=== PATIENT | male | born 1965 | race Two or more races ===

== ENCOUNTER 2023-06-27 08:55 | Emergency (ER) | payer OTHER ==
[~2023-06-27] VITALS: Ht 170.2 cm; Wt 75.3 kg
[2023-06-27] MEDS ORDERED: ONDANSETRON HCL/PF 4 MG/2 ML VIAL ONE (09:28)
[2023-06-27] MEDS ORDERED: HYDROMORPHONE 1 MG/1 ML DISP.SYRIN ONE (09:28)
[2023-06-27 09:33] LABS: BASOPHILS % (AUTO) 0.3 % (0.0-2.0); EOSINOPHILS # (AUTO) 0.1 K/uL (0.0-0.7); EOSINOPHILS % (AUTO) 0.8 % (0.0-6.0); HEMATOCRIT 39 % (39-51); LYMPHOCYTES % (AUTO) 12.4 % (20.0-44.0); MEAN CORPUSCULAR HEMOGLOBIN 29 PG (26.0-33.0); MEAN CORPUSCULAR HGB CONC 34 g/dl (31.0-36.0); MEAN CORPUSCULAR VOLUME 85 fL (80-96); MONOCYTES # (AUTO) 0.7 K/uL (0.1-1.30); MONOCYTES % (AUTO) 8.2 % (2.0-12.0); NEUTROPHILS # (AUTO) 6.5 K/uL (1.8-8.9); NEUTROPHILS % (AUTO) 78.3 % (43.0-81.0); PLATELET COUNT (AUTO) 400 K/uL (150-450); RED BLOOD CELL COUNT(AUTO) 4.55 MIL/uL (4.5-6.0); RED CELL DISTRIBUTION WIDTH 16.5 % (11.5-15.0); WHITE BLOOD COUNT (AUTO) 8.4 K/uL (4.3-11.0)
[2023-06-27] MEDS: HYDROMORPHONE INJ 2 MG/ML DISP.SYRIN IV ONE (09:35)
[2023-06-27] MEDS: ONDANSETRON HCL/PF 4 MG/2 ML VIAL IVP ONE (09:36)
[2023-06-27 09:56] LABS: ALANINE AMINOTRANSFERASE 24 U/L (12-78); ALBUMIN 3.2 g/dL (3.4-5.0); ALCOHOL, BLOOD < 3 mg/dL (0-10); ALKALINE PHOSPHATASE 97 U/L (46-116); ASPARTATE AMINOTRANSFERASE 19 U/L (15-37); BILIRUBIN,DIRECT 0.1 mg/dL (0.0-0.2); BILIRUBIN,TOTAL 0.4 mg/dL (0.2-1.0); CALCIUM, SERUM 8.9 mg/dL (8.5-10.1); CARBON DIOXIDE 25 mmol/L (21-32); CHLORIDE 99 mmol/L (98-107); CREATININE 0.7 mg/dL (0.6-1.3); GLUCOSE 114 mg/dL (74-106); SODIUM SERUM 132 mmol/L (136-145); TOTAL PROTEIN, SERUM 8.3 g/dL (6.4-8.2); UREA NITROGEN, BLOOD 12 mg/dL (7-18)
[2023-06-27 10:33] LABS: BARBITURATE, URINE NEGATIVE (NEGATIVE); BENZODIAZEPINE, URINE NEGATIVE (NEGATIVE); COCCAINE, URINE NEGATIVE (NEGATIVE); OPIATE, URINE NEGATIVE (NEGATIVE); PHENCYCLIDINE SCREEN,URINE NEGATIVE (NEGATIVE)
[2023-06-27 10:40] LABS: AMPHETAMINE, URINE POSITIVE (NEGATIVE); CANNABINOID, URINE POSITIVE (NEGATIVE)
[2023-06-27] MEDS ORDERED: TRAM50TA2 PO (11:39)
[2023-06-27 12:23] VITALS: BP 130/72; TEMP 98.2; O2SAT 99
== END 2023-06-27 12:25 | disposition home or self-care (01) ==
LOC: ER 09:00
DX: G89.29 Other chronic pain (principal); M25.562 Pain in left knee; M17.12 Unilateral primary osteoarthritis, left knee; L97.129 Non-pressure chronic ulcer of left thigh with unspecified severity; Z59.00 Homelessness unspecified
CPT/HCPCS: 99284; 96374; 96375; 73564; 73590; 85025; 80048; 80076; 36415; 80320; 80307; J2405; J1170; G0480

== ENCOUNTER 2023-07-01 22:02 | Inpatient (IN) | payer OTHER ==
[~2023-07-01] VITALS: Ht 175.3 cm; Wt 70.3 kg
[~2023-07-01 22:02] MED LIST: TRAM50TA2 PO
[2023-07-01] MEDS ORDERED: VANCOMYCIN 1 GM /D5W 250 ML PB IV ONE ×2 (22:47→22:50)
[2023-07-01] MEDS: VANCOMYCIN HCL 1 GM in IV D5W 260 ML IV ONE (22:56)
[2023-07-01 23:40] LABS: BASOPHILS % (AUTO) 0.6 % (0.0-2.0); EOSINOPHILS # (AUTO) 0.1 K/uL (0.0-0.7); EOSINOPHILS % (AUTO) 2.5 % (0.0-6.0); HEMATOCRIT 36 % (39-51); HEMOGLOBIN 12.1 g/dL (13.5-17.5); LYMPHOCYTES # (AUTO) 1.3 K/uL (0.8-4.8); LYMPHOCYTES % (AUTO) 22.6 % (20.0-44.0); MEAN CORPUSCULAR HEMOGLOBIN 29 PG (26.0-33.0); MEAN CORPUSCULAR HGB CONC 34 g/dl (31.0-36.0); MEAN CORPUSCULAR VOLUME 84 fL (80-96); MONOCYTES # (AUTO) 0.5 K/uL (0.1-1.30); MONOCYTES % (AUTO) 8.7 % (2.0-12.0); NEUTROPHILS # (AUTO) 3.8 K/uL (1.8-8.9); NEUTROPHILS % (AUTO) 65.6 % (43.0-81.0); PLATELET COUNT (AUTO) 494 K/uL (150-450); RED BLOOD CELL COUNT(AUTO) 4.25 MIL/uL (4.5-6.0); RED CELL DISTRIBUTION WIDTH 16.3 % (11.5-15.0); WHITE BLOOD COUNT (AUTO) 5.8 K/uL (4.3-11.0)
[2023-07-01 23:50] LABS: POTASSIUM 3.7 mmol/L (3.5-5.1); SODIUM SERUM 139 mmol/L (136-145)
[2023-07-01 23:51] LABS: CALCIUM, SERUM 9.3 mg/dL (8.5-10.1); CARBON DIOXIDE 28 mmol/L (21-32); CHLORIDE 101 mmol/L (98-107); CREATININE 0.8 mg/dL (0.6-1.3); GLUCOSE 102 mg/dL (74-106); UREA NITROGEN, BLOOD 9 mg/dL (7-18)
[2023-07-01 23:59] LABS: ALANINE AMINOTRANSFERASE 28 U/L (12-78); ALCOHOL, BLOOD < 3 mg/dL (0-10); ALKALINE PHOSPHATASE 96 U/L (46-116); ASPARTATE AMINOTRANSFERASE 19 U/L (15-37); BILIRUBIN,TOTAL 0.4 mg/dL (0.2-1.0); TOTAL PROTEIN, SERUM 8.1 g/dL (6.4-8.2)
[2023-07-02 00:03] LABS: LACTIC ACID 0.9 mmol/L (0.4-2.0)
[2023-07-02] MEDS ORDERED: IV NS 0.9% 250 ML IV ONE (00:15)
[2023-07-02] MEDS ORDERED: IOHEXOL-350 100 ML VIAL IV ONE (00:15)
[2023-07-02] MEDS ORDERED: ONDANSETRON HCL/PF 4 MG/2 ML VIAL ONE (01:03)
[2023-07-02] MEDS ORDERED: MORPHINE SULFATE INJ 4 MG/ML DISP.SYRIN ONE (01:03)
[2023-07-02] MEDS: ONDANSETRON HCL/PF - ER 4 MG/2 ML VIAL IV ONE (01:17)
[2023-07-02] MEDS: MORPHINE SULFATE INJ 2 MG/ML DISP.SYRIN IV ONE (01:17)
[2023-07-02] MEDS ORDERED: Z GUARD REMEDY 4 OZ OINT TP PRN (02:00)
[2023-07-02] MEDS ORDERED: ONDANSETRON HCL/PF 4 MG/2 ML VIAL IVP PRN (02:00)
[2023-07-02] MEDS ORDERED: MAGNESIUM HYDROXIDE 30 ML UDC PO PRN (02:00)
[2023-07-02] MEDS ORDERED: MAG HYDROX/AL HYDROX/SIMETH 30 ML UDC PO PRN (02:00)
[2023-07-02 02:51] LABS: APPEARANCE,URINE CLEAR (CLEAR); BILIRUBIN,URINE NEGATIVE (NEGATIVE); BLOOD, URINE NEGATIVE Ery/uL (NEGATIVE); COLOR,URINE DARK YELLOW (YELLOW); KETONES,URINE NEGATIVE (NEGATIVE); LEUKOCYTE ESTERASE ,URINE NEGATIVE (NEGATIVE); NITRITE, URINE NEGATIVE (NEGATIVE); PH,URINE 6.5 (5.0-8.0); PROTEIN,URINE NEGATIVE (NEGATIVE); UGLUCOSE NEGATIVE (NEGATIVE)
[2023-07-02 03:02] LABS: BARBITURATE, URINE NEGATIVE (NEGATIVE); BENZODIAZEPINE, URINE NEGATIVE (NEGATIVE); COCCAINE, URINE NEGATIVE (NEGATIVE); PHENCYCLIDINE SCREEN,URINE NEGATIVE (NEGATIVE)
[2023-07-02 03:03] LABS: AMPHETAMINE, URINE POSITIVE (NEGATIVE); CANNABINOID, URINE POSITIVE (NEGATIVE); OPIATE, URINE POSITIVE (NEGATIVE)
[2023-07-02] MEDS: PIPERACILLIN /TAZOBACTAM 3.375 G in IV NS 0.9% 100 ML IV ONE (04:00)
[2023-07-02] MEDS: ENOXAPARIN SODIUM 40 MG/0.4 ML DISP.SYRIN SQ SCH (04:31)
[2023-07-02] MEDS: PIPERACI/TAZO 3.375GM/D5W 50ML PB IV ONE (05:25)
[2023-07-02] MEDS: PIPERACILLIN /TAZOBACTAM 3.375 G in IVPB D5W FOR ZOSYN 50 ML IV ONE (05:28)
[2023-07-02] MEDS ORDERED: PIPERACILLIN /TAZOBACTAM 3.375 G in IV D5W 100 ML IV ONE (05:30)
[2023-07-02] MEDS: HYDROCODONE/APAP 5/325MG TABLET PO PRN (06:48)
[2023-07-02] MEDS ORDERED: ACET-2605 PO (08:01)
[2023-07-02] MEDS: PANTOPRAZOLE 40 MG TABLET.DR PO SCH (08:30)
[2023-07-02] MEDS: VANCOMYCIN 1 GM in IV D5W 250 ML IV SCH (08:48)
[2023-07-02 08:58] VITALS: BP 135/99; TEMP 97.6; O2SAT 96
[2023-07-02] MEDS: HYDROMORPHONE 1 MG/1 ML DISP.SYRIN IV PRN (09:53)
[2023-07-02] MEDS ORDERED: HYDROMORPHONE 1 MG/1 ML DISP.SYRIN IV PRN (10:30)
[2023-07-02 12:00] VITALS: BP 137/69; TEMP 97.6; O2SAT 96
[2023-07-02] MEDS: ZOSYN IVPB 4.5 G in IV D5W 50ml IV SCH (13:06)
[2023-07-02 16:00] VITALS: BP 135/71; TEMP 98.4; O2SAT 96
[2023-07-02 20:00] VITALS: BP 113/71; TEMP 98.8; O2SAT 100
[2023-07-03 06:15] LABS: EOSINOPHILS # (AUTO) 0.1 K/uL (0.0-0.7); EOSINOPHILS % (AUTO) 2.9 % (0.0-6.0); HEMATOCRIT 35 % (39-51); LYMPHOCYTES # (AUTO) 0.8 K/uL (0.8-4.8); LYMPHOCYTES % (AUTO) 17.1 % (20.0-44.0); MEAN CORPUSCULAR HEMOGLOBIN 29 PG (26.0-33.0); MEAN CORPUSCULAR HGB CONC 34 g/dl (31.0-36.0); MEAN CORPUSCULAR VOLUME 85 fL (80-96); MONOCYTES # (AUTO) 0.4 K/uL (0.1-1.30); MONOCYTES % (AUTO) 9.4 % (2.0-12.0); NEUTROPHILS # (AUTO) 3.3 K/uL (1.8-8.9); NEUTROPHILS % (AUTO) 69.6 % (43.0-81.0); PLATELET COUNT (AUTO) 433 K/uL (150-450); RED BLOOD CELL COUNT(AUTO) 4.15 MIL/uL (4.5-6.0); RED CELL DISTRIBUTION WIDTH 15.7 % (11.5-15.0); WHITE BLOOD COUNT (AUTO) 4.7 K/uL (4.3-11.0)
[2023-07-03 06:27] LABS: CALCIUM, SERUM 8.3 mg/dL (8.5-10.1); CREATININE 0.9 mg/dL (0.6-1.3); MAGNESIUM 2.1 mg/dL (1.8-2.4); PHOSPHORUS 3.8 mg/dL (2.5-4.9); POTASSIUM 3.9 mmol/L (3.5-5.1)
[2023-07-03 08:00] VITALS: BP 108/60; TEMP 98.1; O2SAT 100
[2023-07-03] MEDS: PROSOURCE / PROSTAT (PYXIS) 30 ML UDC PO SCH (13:27)
[2023-07-03 14:59] LABS: HIV-1 p24 ANTIGEN NON REACTIVE (NONREACTIVE); HIV-1/2 ANTIBODY NON REACTIVE (NONREACTIVE)
[2023-07-03 15:41] VITALS: BP 127/74; TEMP 98.1; O2SAT 96
[2023-07-03] MEDS: ARGININE/GLUTAMINE/CALCIUM BMB 1 EACH POWD.PACK PO SCH (17:41)
[2023-07-03 20:00] VITALS: BP 136/98; TEMP 98.6; O2SAT 96
[2023-07-04 08:00] VITALS: BP 118/72; TEMP 99.1; O2SAT 100
[2023-07-04] MEDS: ZINC SULFATE 220 MG CAPSULE PO SCH (09:05)
[2023-07-04] MEDS: MULTIVIT W/MINERALS 1 TAB TABLET PO SCH (09:05)
[2023-07-04] MEDS: ASCORBIC ACID 500 MG TABLET PO SCH (09:05)
[2023-07-04] MEDS: ACETAMINOPHEN 325 MG TABLET PO PRN (10:51)
[2023-07-04 16:00] VITALS: BP 130/88; TEMP 99; O2SAT 96
[2023-07-04 20:00] VITALS: BP 108/66; TEMP 97.9; O2SAT 93
[2023-07-04] MEDS: MUPIROCIN OINT 2% 22 GM TUBE NS SCH (21:00)
[2023-07-05 07:44] LABS: CALCIUM, SERUM 8.9 mg/dL (8.5-10.1); CREATININE 0.9 mg/dL (0.6-1.3); POTASSIUM 4.5 mmol/L (3.5-5.1)
[2023-07-05 08:00] VITALS: BP 109/68; TEMP 98.1; O2SAT 98
[2023-07-05] MEDS: VANCOMYCIN 750 MG in IV D5W 250 ML IV SCH (13:54)
[2023-07-05 16:00] VITALS: BP 115/75; TEMP 98.2; O2SAT 96
[2023-07-05 20:00] VITALS: BP 109/65; TEMP 98.1; O2SAT 96
[2023-07-05] MEDS: ZOLPIDEM TARTRATE 5 MG TABLET PO PRN (22:43)
[2023-07-06 07:49] LABS: CREATININE 0.9 mg/dL (0.6-1.3); POTASSIUM 3.9 mmol/L (3.5-5.1)
[2023-07-06 08:00] VITALS: BP 122/76; TEMP 97.9; O2SAT 96
[2023-07-06 16:00] VITALS: BP 96/56; TEMP 97.6; O2SAT 98
[2023-07-06 20:00] VITALS: BP 104/73; TEMP 97.9; O2SAT 96
[2023-07-06 20:41] VITALS: BP 104/73; TEMP 97.9; O2SAT 96
[2023-07-07 07:10] LABS: CALCIUM, SERUM 8.6 mg/dL (8.5-10.1); CREATININE 0.8 mg/dL (0.6-1.3); POTASSIUM 3.8 mmol/L (3.5-5.1)
[2023-07-07 08:00] VITALS: BP 117/61; TEMP 97.9; O2SAT 97
[2023-07-07] MEDS ORDERED: DOXY100T2 PO (10:08)
[2023-07-07 16:00] VITALS: BP 149/94; TEMP 97.9; O2SAT 98
[2023-07-07 20:00] VITALS: BP 110/70; TEMP 98.1; O2SAT 96
[2023-07-08 07:07] LABS: CALCIUM, SERUM 8.8 mg/dL (8.5-10.1); CREATININE 0.8 mg/dL (0.6-1.3); POTASSIUM 4.4 mmol/L (3.5-5.1)
[2023-07-08 08:00] VITALS: BP 121/86; TEMP 97.7; O2SAT 95
== END 2023-07-08 14:47 | DRG 344 ==
LOC: ER 22:13 → MED 07-02 02:51
PROVIDERS: ADMIT Internal Medicine; ATTEND Internal Medicine
PROC: 02HV33Z Insertion of Infusion Device into Superior Vena Cava, Percutaneous Approach (ICD-10-PCS; principal; 2023-07-05)
PROC: B548ZZA Ultrasonography of Superior Vena Cava, Guidance (ICD-10-PCS; 2023-07-05)
DX: M86.8X8 Other osteomyelitis, other site (principal); L97.829 Non-pressure chronic ulcer of other part of left lower leg with unspecified severity; F17.200 Nicotine dependence, unspecified, uncomplicated; Z59.00 Homelessness unspecified; B95.62 Methicillin resistant Staphylococcus aureus infection as the cause of diseases classified elsewhere; Z20.822 Contact with and (suspected) exposure to COVID-19; M24.562 Contracture, left knee; B19.20 Unspecified viral hepatitis C without hepatic coma; J43.9 Emphysema, unspecified; F19.90 Other psychoactive substance use, unspecified, uncomplicated
CPT/HCPCS: 36415; 71045-TC; 73701-TC; 80048-TC; 80053-TC; 80202-TC; 83605-TC; 83735-TC; 84100-TC; 85025-TC; 86140-TC; 86803; 87040-TC; 87081-TC; 87806; 97112-TC; 97116-TC; 97530-TC; A4223; A6253; A6403; G0378; G0480; J1170; J1650; J2270; J2405; J2543; J3370; J3371; J7030; J7040; J7050; J7060; Q9967

== ENCOUNTER 2023-09-20 16:33 | Inpatient (IN) | payer MEDICAID, OTHER ==
[~2023-09-20] VITALS: Ht 162.6 cm; Wt 85.3 kg
[~2023-09-20 16:33] MED LIST changes: +ACET-2605 PO; +DOXY100T2 PO; -TRAM50TA2 PO
[2023-09-20] MEDS ORDERED: CEFEPIME 1 GM VIAL ONE (20:37)
[2023-09-20] MEDS ORDERED: VANCOMYCIN 1 GM /D5W 250 ML PB IV ONE (20:37)
[2023-09-20] MEDS: CEFEPIME 1 GM in IV D5W 50 ML IV ONE (20:45)
[2023-09-20 21:08] LABS: BASOPHILS % (AUTO) 0.5 % (0.0-2.0); EOSINOPHILS # (AUTO) 0.3 K/uL (0.0-0.7); EOSINOPHILS % (AUTO) 3.2 % (0.0-6.0); HEMATOCRIT 34 % (39-51); HEMOGLOBIN 11.8 g/dL (13.5-17.5); LYMPHOCYTES # (AUTO) 2.2 K/uL (0.8-4.8); LYMPHOCYTES % (AUTO) 26.3 % (20.0-44.0); MEAN CORPUSCULAR HEMOGLOBIN 31 PG (26.0-33.0); MEAN CORPUSCULAR HGB CONC 35 g/dl (31.0-36.0); MEAN CORPUSCULAR VOLUME 90 fL (80-96); MONOCYTES # (AUTO) 0.7 K/uL (0.1-1.30); MONOCYTES % (AUTO) 7.8 % (2.0-12.0); NEUTROPHILS # (AUTO) 5.2 K/uL (1.8-8.9); NEUTROPHILS % (AUTO) 62.2 % (43.0-81.0); PLATELET COUNT (AUTO) 241 K/uL (150-450); RED BLOOD CELL COUNT(AUTO) 3.78 MIL/uL (4.5-6.0); RED CELL DISTRIBUTION WIDTH 14.7 % (11.5-15.0); WHITE BLOOD COUNT (AUTO) 8.4 K/uL (4.3-11.0)
[2023-09-20 21:19] LABS: CALCIUM, SERUM 8.6 mg/dL (8.5-10.1); CREATININE 0.8 mg/dL (0.6-1.3); POTASSIUM 3.7 mmol/L (3.5-5.1)
[2023-09-20] MEDS: VANCOMYCIN 1 GM in IV D5W 250 ML IV ONE (21:30)
[2023-09-20 21:31] LABS: INR 1.02 (0.91-1.10); PARTIAL THROMBOPLASTIN TIME 26.1 SEC (24.3-34.3); PROTHROMBIN TIME 10.8 SECS (9.2-11.1)
[2023-09-20 22:00] VITALS: BP 119/81; TEMP 97.9; O2SAT 97
[2023-09-20] MEDS ORDERED: ZOLPIDEM TARTRATE 5 MG TABLET PO PRN (23:30)
[2023-09-20] MEDS ORDERED: ONDANSETRON HCL/PF 4 MG/2 ML VIAL IVP PRN (23:30)
[2023-09-20] MEDS ORDERED: MAG HYDROX/AL HYDROX/SIMETH 30 ML UDC PO PRN (23:30)
[2023-09-20] MEDS ORDERED: MAGNESIUM HYDROXIDE 30 ML UDC PO PRN (23:30)
[2023-09-21] MEDS ORDERED: ACETAMINOPHEN ES 500 MG TABLET PO PRN
[2023-09-21] MEDS: ENOXAPARIN SODIUM 40 MG/0.4 ML DISP.SYRIN SQ SCH (00:01)
[2023-09-21 06:37] LABS: BASOPHILS % (AUTO) 0.4 % (0.0-2.0); EOSINOPHILS # (AUTO) 0.3 K/uL (0.0-0.7); EOSINOPHILS % (AUTO) 4.8 % (0.0-6.0); HEMATOCRIT 34 % (39-51); HEMOGLOBIN 11.6 g/dL (13.5-17.5); LYMPHOCYTES # (AUTO) 1.4 K/uL (0.8-4.8); LYMPHOCYTES % (AUTO) 23.6 % (20.0-44.0); MEAN CORPUSCULAR HEMOGLOBIN 31 PG (26.0-33.0); MEAN CORPUSCULAR HGB CONC 34 g/dl (31.0-36.0); MEAN CORPUSCULAR VOLUME 89 fL (80-96); MONOCYTES # (AUTO) 0.6 K/uL (0.1-1.30); MONOCYTES % (AUTO) 9.3 % (2.0-12.0); NEUTROPHILS # (AUTO) 3.7 K/uL (1.8-8.9); NEUTROPHILS % (AUTO) 61.9 % (43.0-81.0); PLATELET COUNT (AUTO) 213 K/uL (150-450); RED CELL DISTRIBUTION WIDTH 14.5 % (11.5-15.0)
[2023-09-21 07:09] LABS: CREATININE 0.7 mg/dL (0.6-1.3); MAGNESIUM 2.2 mg/dL (1.8-2.4); PHOSPHORUS 2.8 mg/dL (2.5-4.9); POTASSIUM 3.3 mmol/L (3.5-5.1)
[2023-09-21 07:35] VITALS: BP 135/53; TEMP 98.5; O2SAT 97
[2023-09-21] MEDS: PANTOPRAZOLE 40 MG TABLET.DR PO SCH (07:47)
[2023-09-21] MEDS: CEFEPIME 2 GM in IV D5W 100 ML IV SCH (07:48)
[2023-09-21 08:09] VITALS: BP 125/78; TEMP 97.7; O2SAT 94
[2023-09-21] MEDS: VANCOMYCIN 750 MG in IV D5W 250 ML IV SCH (08:40)
[2023-09-21] MEDS: POTASSIUM CHLORIDE 20 MEQ TAB.PRT.SR PO ONE (09:33)
[2023-09-21 16:22] VITALS: BP 125/76; TEMP 98.1; O2SAT 98
[2023-09-21] MEDS: ACETAMINOPHEN 325 MG TABLET PO PRN (18:15)
[2023-09-21 20:00] VITALS: BP 135/53; TEMP 98.5
[2023-09-21 21:13] VITALS: O2SAT 97
[2023-09-22 07:00] VITALS: BP 118/62; TEMP 97.7; O2SAT 95
[2023-09-22 07:22] LABS: CREATININE 0.7 mg/dL (0.6-1.3); POTASSIUM 3.6 mmol/L (3.5-5.1)
[2023-09-22] MEDS ORDERED: CADEXOMER IODINE 40 GM TUBE TP SCH (10:00)
[2023-09-22] MEDS: CADEXOMER IODINE UD 5 GM TUBE TP SCH (11:23)
[2023-09-22] MEDS ORDERED: GADOTERATE MEGLUMINE 10 MMOL/20 ML VIAL IV ONE (14:10)
[2023-09-22 16:00] VITALS: BP 133/82; TEMP 97.7; O2SAT 97
[2023-09-22] MEDS: VANCOMYCIN 1 GM in IV D5W 250ml IV SCH (16:38)
[2023-09-22 20:00] VITALS: BP 144/98; TEMP 98.1; O2SAT 98
[2023-09-23 07:20] LABS: CALCIUM, SERUM 9.7 mg/dL (8.5-10.1); CREATININE 0.6 mg/dL (0.6-1.3); POTASSIUM 3.9 mmol/L (3.5-5.1)
[2023-09-23 08:00] VITALS: BP 130/80; TEMP 98.2; O2SAT 95
[2023-09-23] MEDS: NICOTINE PATCH (14MG) 14 MG PATCH.TD24 TD SCH (08:54)
[2023-09-23 10:14] VITALS: BP 130/80; TEMP 98.2; O2SAT 95
[2023-09-23 16:00] VITALS: BP 128/76; TEMP 98.6; O2SAT 9
[2023-09-23] MEDS ORDERED: OMEPRAZOLE 20 MG CAPSULE.DR PO SCH (16:30)
[2023-09-23 20:00] VITALS: BP 132/76; TEMP 98.1; O2SAT 97
[2023-09-24 07:18] LABS: CALCIUM, SERUM 9.6 mg/dL (8.5-10.1); CREATININE 0.7 mg/dL (0.6-1.3); POTASSIUM 3.9 mmol/L (3.5-5.1)
[2023-09-24 08:00] VITALS: BP 130/95; TEMP 97.1; O2SAT 98
[2023-09-24 16:00] VITALS: BP 115/97; TEMP 98; O2SAT 96
[2023-09-24 20:00] VITALS: BP 127/84; TEMP 97.7; O2SAT 95
[2023-09-25 07:09] LABS: CALCIUM, SERUM 9.5 mg/dL (8.5-10.1); CREATININE 0.7 mg/dL (0.6-1.3); POTASSIUM 4.4 mmol/L (3.5-5.1)
[2023-09-25 08:00] VITALS: BP 131/81; TEMP 97.5; O2SAT 96
[2023-09-25 16:00] VITALS: BP 106/75; TEMP 97.5; O2SAT 98
[2023-09-26 08:00] VITALS: BP 108/76; TEMP 98.9; O2SAT 94
[2023-09-26 16:00] VITALS: BP 111/65; TEMP 97.9; O2SAT 100
[2023-09-26 20:10] VITALS: BP 93/61; TEMP 97.7; O2SAT 96
[2023-09-26] MEDS: TRAMADOL HCL 50 MG TABLET PO PRN (22:37)
[2023-09-27] MEDS: VANCOMYCIN HCL 1.25 GM in IV D5W 250 ML IV SCH (00:30)
[2023-09-27 08:17] VITALS: BP 109/72; TEMP 98.4; O2SAT 98
[2023-09-27 15:52] VITALS: BP 122/72; TEMP 97.7; O2SAT 98
[2023-09-27 20:00] VITALS: BP 117/87; TEMP 98.1; O2SAT 97
[2023-09-28 07:10] VITALS: BP 111/83; TEMP 97.5; O2SAT 97
[2023-09-28 07:43] LABS: CALCIUM, SERUM 9.4 mg/dL (8.5-10.1); CREATININE 0.7 mg/dL (0.6-1.3)
[2023-09-28 08:00] VITALS: BP 113/73; TEMP 97.7; O2SAT 97
[2023-09-28 16:00] VITALS: BP 135/84; TEMP 97.5; O2SAT 95
[2023-09-28] MEDS: VANCOMYCIN 1 GM in IV D5W 250 ML IV SCH (16:27)
[2023-09-29 07:15] LABS: BASOPHILS % (AUTO) 0.5 % (0.0-2.0); EOSINOPHILS # (AUTO) 0.2 K/uL (0.0-0.7); EOSINOPHILS % (AUTO) 2.8 % (0.0-6.0); HEMATOCRIT 37 % (39-51); HEMOGLOBIN 12.8 g/dL (13.5-17.5); LYMPHOCYTES # (AUTO) 1.8 K/uL (0.8-4.8); LYMPHOCYTES % (AUTO) 29.4 % (20.0-44.0); MEAN CORPUSCULAR HEMOGLOBIN 31 PG (26.0-33.0); MEAN CORPUSCULAR HGB CONC 35 g/dl (31.0-36.0); MEAN CORPUSCULAR VOLUME 88 fL (80-96); MONOCYTES # (AUTO) 0.7 K/uL (0.1-1.30); MONOCYTES % (AUTO) 11.9 % (2.0-12.0); NEUTROPHILS # (AUTO) 3.4 K/uL (1.8-8.9); NEUTROPHILS % (AUTO) 55.4 % (43.0-81.0); PLATELET COUNT (AUTO) 316 K/uL (150-450); RED BLOOD CELL COUNT(AUTO) 4.17 MIL/uL (4.5-6.0); RED CELL DISTRIBUTION WIDTH 14.3 % (11.5-15.0); WHITE BLOOD COUNT (AUTO) 6.2 K/uL (4.3-11.0)
[2023-09-29 07:40] LABS: CALCIUM, SERUM 8.5 mg/dL (8.5-10.1); CREATININE 0.7 mg/dL (0.6-1.3); MAGNESIUM 2.1 mg/dL (1.8-2.4); PHOSPHORUS 3.8 mg/dL (2.5-4.9); POTASSIUM 3.9 mmol/L (3.5-5.1)
[2023-09-29 08:00] VITALS: BP 108/77; TEMP 97.1; O2SAT 96
[2023-09-29 16:00] VITALS: BP 122/74; TEMP 98.1; O2SAT 95
[2023-09-29 20:00] VITALS: BP 104/56; TEMP 97.5; O2SAT 96
[2023-09-30 00:37] LABS: CALCIUM, SERUM 9.1 mg/dL (8.5-10.1); CREATININE 0.8 mg/dL (0.6-1.3); POTASSIUM 3.8 mmol/L (3.5-5.1)
[2023-09-30 07:30] VITALS: BP 107/73; TEMP 97.8; O2SAT 97
[2023-09-30 20:00] VITALS: BP 123/1; TEMP 98.1; O2SAT 96
[2023-10-01 07:00] VITALS: BP 116/75; TEMP 97.7; O2SAT 95
[2023-10-01 07:21] LABS: CALCIUM, SERUM 9.9 mg/dL (8.5-10.1); CREATININE 0.8 mg/dL (0.6-1.3); POTASSIUM 3.8 mmol/L (3.5-5.1)
[2023-10-01 16:00] VITALS: BP 118/68; TEMP 98.2; O2SAT 96
[2023-10-01 20:17] VITALS: BP 119/74; TEMP 97.5; O2SAT 97
[2023-10-01] MEDS: ENOXAPARIN SODIUM 80 MG/0.8 ML DISP.SYRIN SQ SCH (22:04)
[2023-10-02 08:00] VITALS: BP 111/66; TEMP 98.1; O2SAT 95
[2023-10-02 08:04] LABS: CALCIUM, SERUM 9.3 mg/dL (8.5-10.1); CREATININE 0.7 mg/dL (0.6-1.3); POTASSIUM 3.7 mmol/L (3.5-5.1)
[2023-10-02 16:00] VITALS: BP 114/71; TEMP 98.1; O2SAT 98
[2023-10-02 20:00] VITALS: BP 102/66; TEMP 98.1; O2SAT 95
[2023-10-03 08:00] VITALS: BP 109/75; TEMP 97.9; O2SAT 100
[2023-10-03 08:13] LABS: CALCIUM, SERUM 8.7 mg/dL (8.5-10.1); CREATININE 0.7 mg/dL (0.6-1.3); POTASSIUM 3.9 mmol/L (3.5-5.1)
[2023-10-03] MEDS ORDERED: DOXY100T2 PO (10:29)
[2023-10-03] MEDS ORDERED: ASPI-992 PO (10:29)
[2023-10-03 16:00] VITALS: BP 121/69; TEMP 97.9; O2SAT 95
[2023-10-03] MEDS: VANCOMYCIN 750 MG in IV D5W 250 ML IV SCH (16:02)
[2023-10-03 20:00] VITALS: BP 126/68; TEMP 98.1; O2SAT 96
[2023-10-04 07:40] LABS: CREATININE 0.7 mg/dL (0.6-1.3); POTASSIUM 3.8 mmol/L (3.5-5.1)
[2023-10-04 08:00] VITALS: BP 140/78; TEMP 98.1; O2SAT 98
[2023-10-04 16:00] VITALS: BP 100/57; TEMP 97.3; O2SAT 96
[2023-10-04 20:00] VITALS: BP 100/67; TEMP 97.5; O2SAT 96
[2023-10-05 08:46] VITALS: BP 106/76; TEMP 98; O2SAT 96
[2023-10-05 09:56] LABS: CALCIUM, SERUM 9.1 mg/dL (8.5-10.1); CREATININE 0.7 mg/dL (0.6-1.3); POTASSIUM 3.8 mmol/L (3.5-5.1)
[2023-10-05 15:54] VITALS: BP 99/65; TEMP 98.2; O2SAT 97
[2023-10-05 20:00] VITALS: BP 101/71; TEMP 97.6; O2SAT 100
[2023-10-06 03:52] VITALS: BP 105/67; O2SAT 97
[2023-10-06 07:15] LABS: CREATININE 0.8 mg/dL (0.6-1.3)
[2023-10-06 08:00] VITALS: BP 120/74; TEMP 97.5; O2SAT 96
[2023-10-06] MEDS ORDERED: ENOXAPARIN SODIUM 40 MG/0.4 ML DISP.SYRIN SQ SCH (09:00)
[2023-10-06 16:00] VITALS: BP 130/65; TEMP 97.5; O2SAT 97
[2023-10-06 20:00] VITALS: BP 99/68; TEMP 97.7; O2SAT 96
[2023-10-06] MEDS: Z GUARD REMEDY 4 OZ OINT TP PRN (20:48)
[2023-10-07 07:00] LABS: CALCIUM, SERUM 9.3 mg/dL (8.5-10.1); CREATININE 0.8 mg/dL (0.6-1.3); POTASSIUM 3.8 mmol/L (3.5-5.1)
[2023-10-07 08:00] VITALS: BP 100/60; TEMP 97.9; O2SAT 95
[2023-10-07] MEDS: ENOXAPARIN SODIUM 40 MG/0.4 ML DISP.SYRIN SQ SCH (08:06)
== END 2023-10-07 17:00 | DRG 344 ==
LOC: ER 16:39 → MED 21:35
PROVIDERS: ADMIT Student in an Organized Health Care Education/Training Program; ATTEND Nurse Practitioner Acute Care
PROC: 05HA33Z Insertion of Infusion Device into Left Brachial Vein, Percutaneous Approach (ICD-10-PCS; principal; 2023-10-03)
DX: M86.152 Other acute osteomyelitis, left femur (principal); I82.621 Acute embolism and thrombosis of deep veins of right upper extremity; L02.416 Cutaneous abscess of left lower limb; L03.116 Cellulitis of left lower limb; L97.929 Non-pressure chronic ulcer of unspecified part of left lower leg with unspecified severity; D63.8 Anemia in other chronic diseases classified elsewhere; M86.68 Other chronic osteomyelitis, other site; M86.18 Other acute osteomyelitis, other site; E86.0 Dehydration; D64.9 Anemia, unspecified; Z59.00 Homelessness unspecified; F17.200 Nicotine dependence, unspecified, uncomplicated; R79.89 Other specified abnormal findings of blood chemistry; M19.90 Unspecified osteoarthritis, unspecified site; M86.652 Other chronic osteomyelitis, left thigh; M79.9 Soft tissue disorder, unspecified; M17.12 Unilateral primary osteoarthritis, left knee; M76.52 Patellar tendinitis, left knee; F12.10 Cannabis abuse, uncomplicated
CPT/HCPCS: 36415; 71045-TC; 73564-TC; 73723-TC; 80048-TC; 80202-TC; 83605-TC; 83735-TC; 84100-TC; 85025-TC; 85652-TC; 85730-TC; 86140-TC; 87040-TC; 87081-TC; 93971-TC; 97110-TC; 97116-TC; 97530-TC; A4223; A6403; A9575; G0378; J0692; J1650; J3370; J3371; J7040; J7050; J7060; J7120